=== PATIENT | male | born 1975 | race Caucasian/White ===

== ENCOUNTER → 2017-01-11 | Outpatient (CLI) | payer OTHER ==
--- NOTE | 2017-01-11 17:38 | MRI ---
MRI lumbar spine with and without contrast Indication: Lower back pain Technique: Multisequence, multiplanar MR images of the lumbar spine were obtained with and without I V contrast. Comparison: None Findings: A subchondral cyst is noted within the left sacrum adjacent to the left SI joint. Bone mar row signal and vertebral body heights/alignment are otherwise normal. No acute fracture, subluxation or suspicious osseous lesion is identified. The conus is normal in signal, terminating at T12. The cauda equina is unremarkable. There is heterogeneity of the partially visualized ileocecal junction, which likely reflects fecal material. No definite abnormal enhancement is identified. T11-T12, T12-L1: Unremarkable L2-L3, L3-L4: Very mild paracentral disc bulge. Otherwise, unremarkable. L4-L5: Mild disc desiccation/narrowing, broad-based posterior disc bulge and central annular tear/fi ssure (sagittal image 7, series 601) without significant canal or foraminal stenosis. There is also mild bilateral facet arthropathy. L5-S1: Mild disk desiccation, broad-based disk bulge lateralized towards the left and mild facet art hropathy results in moderate left lateral recess narrowing. There is no significant canal or foramin al stenosis. Impression: 1. Mild discogenic degenerative changes of the lower lumbar spine, most significant at L4-L5 and L5- S1, as detailed above. 2. Nonspecific heterogeneity of the partially visualized ileocecal junction is nonspecific and likel y simply reflects fecal material. Recommend clinical correlation or if clinically warranted, further evaluation with contrast-enhanced CT. Reported By:
== END ==
LOC: RAD 14:54
PROVIDERS: ATTEND Orthopaedic Surgery Orthopaedic Surgery of the Spine
DX: M54.5 Low back pain (principal); M79.605 Pain in left leg
CPT/HCPCS: 72158